=== PATIENT | female | born 1945 | race Caucasian/White ===

== ENCOUNTER → 2017-05-17 13:47 | Outpatient (CLI) | payer MEDICARE | END | disposition home or self-care (01) | LOC: D.MAMMO 11:00 | DX: Z12.31 Encounter for screening mammogram for malignant neoplasm of breast (principal) ==

== ENCOUNTER 2018-01-21 09:00 | Day surgery (SDC) | payer MEDICARE ==
[2018-01-18 11:32] LABS: HEMATOCRIT 44.7 % (36.0-48.0); HEMOGLOBIN 15.3 g/dL (12-16); MCH 31.6 pg (26.0-34.0); MCHC 34.2 g/dL (31.0-37.0); MCV 92.4 fL (80.0-100.0); MEAN PLATELET VOLUME 8.9 fL (7.4-10.4); RBC 4.84 10x6/uL (4.00-5.40); RDW 12.3 % (11.5-14.5); WBC 5.8 10x3/uL (4.8-10.8)
[~2018-01-21] VITALS: Ht 154.9 cm; Wt 59.1 kg
--- NOTE | ~2018-01-21 | OP ---
PATIENT NAME: REJI RICHARDSON MEDICAL RECORD: [id number] :47 LOCATION:D.OPS ADMISSION DATE: SURGEON: YNES MEDINA MD DATE OF OPERATION: 01/21/2018 SURGEON: Ynes Medina MD PREOPERATIVE DIAGNOSES: 1. Painless rectal bleeding. 2. Internal hemorrhoids. POSTOPERATIVE DIAGNOSES: 1. Painless rectal bleeding. 2. Internal hemorrhoids. PROCEDURES PERFORMED: 1. Rectal examination under anesthesia. 2. Internal hemorrhoid banding times 3. Case was contaminated. ESTIMATED BLOOD LOSS: Minimal. SPECIMENS: None. OPERATIVE COURSE: After consent was obtained, the patient was taken to the operating room and placed in the supine position on the operating table. Next, general anesthesia was given via endotracheal intubation after a timeout was performed to confirm the correct patient and procedure. The patient was then placed into the lithotomy position. The perineum was prepped and draped in typical sterile fashion. A 30 cc of lidocaine were administered for a perineal block. Digital rectal exam was performed. There were prolapsed internal hemorrhoids. The rectum was then sterilely dilated using the Hernandez-Hill retractors. Three large internal hemorrhoid complexes were identified. Bands were placed. The banding device was used to place bands in all 3 internal hemorrhoid columns. Next, the rectum was packed with Gelfoam and [place]. At the end of the case, all needle and instrument counts were correct. No complications occurred. The patient was extubated and transferred to PACU in stable condition. TRANSINT:[id number] Voice Confirmation ID: [id number] DOCUMENT ID: [id number] YNES MEDINA MD at [id number] CC: [id number] DICTATION DATE: 01/21/18 1302 [employer] ASSISTANT: 01/21/18 1322 [facility] 01/21/18 [place] [address]
[~2018-01-21 09:00] MED LIST: NORVASC5 MG PO; PRAVASTATIN SOD10 MG PO
[2018-01-21] MEDS ORDERED: TYLENOL W/CODEI1 TAB PO (10:07)
[2018-01-21 10:19] VITALS: BP 131/83; Ht 154.9 cm; Wt 59.1 kg
[2018-01-21] MEDS ORDERED: VALIUM5 MG PO (12:58)
[2018-01-21] MEDS ORDERED: HEALTHYLAX17 GM PO (12:58)
== END 2018-01-21 15:45 | disposition home or self-care (01) ==
LOC: D.OPS 09:00 → D.PAN 11:00 → D.OPS 11:00 → D.PAN 11:45 → D.OPS 11:45
PROVIDERS: Anesthesiology
DX: K62.5 Hemorrhage of anus and rectum (principal); K64.8 Other hemorrhoids; I10 Essential (primary) hypertension; Z01.812 Encounter for preprocedural laboratory examination

== ENCOUNTER 2018-09-09 08:00 | Outpatient (CLI) | payer MEDICARE ==
[2018-01-21 10:19] VITALS: BMI 24.6
[~2018-09-09 08:00] MED LIST changes: +HEALTHYLAX17 GM PO; +TYLENOL W/CODEI1 TAB PO; +VALIUM5 MG PO
== END 2018-09-09 09:00 | disposition home or self-care (01) ==
LOC: D.MAMMO 08:00
DX: Z12.31 Encounter for screening mammogram for malignant neoplasm of breast (principal)

== ENCOUNTER 2020-04-20 08:00 | Outpatient (CLI) | payer MEDICARE ==
[2018-01-21 10:19] VITALS: BMI 24.6
== END 2020-04-20 13:51 | disposition home or self-care (01) ==
LOC: D.MAMMO 08:00
PROVIDERS: ATTEND Family Medicine
DX: Z12.31 Encounter for screening mammogram for malignant neoplasm of breast (principal)